=== PATIENT | male | born 1970 | race Caucasian/White ===

== ENCOUNTER 2017-07-19 17:52 | Emergency (ER) | payer BC ==
[2017-07-19 18:35] LABS: BASOPHILS # (AUTO) 0.1 10^3/uL (0.0-0.1); BASOPHILS % (AUTO) 0.8 %; EOSINOPHILS # (AUTO) 0.3 10^3/uL (0.0-0.7); EOSINOPHILS % (AUTO) 2.5 %; HCT - HEMATOCRIT 47.2 % (42.0-52.0); HGB - HEMOGLOBIN 16.2 g/dL (14.0-18.0); LYMPHOCYTES # (AUTO) 1.8 10^3/uL (1.5-3.5); LYMPHOCYTES % (AUTO) 15.8 %; MEAN CORPUSCULAR HGB CONC 34.4 g/dL (32.0-36.0); MEAN CORPUSCULAR VOLUME 84.2 fL (80.0-94.0); MEAN PLATELET VOLUME 7.7 fL (7.4-11.4); MONOCYTES # (AUTO) 0.7 10^3/uL (0.0-1.0); MONOCYTES % (AUTO) 6.5 %; NEUTROPHILS # (AUTO) 8.4 10^3/uL (1.5-6.6); NEUTROPHILS % (AUTO) 74.4 %; RED BLOOD COUNT 5.61 10^6/uL (4.70-6.10); RED CELL DISTRIBUTION WIDTH 13.4 % (12.0-15.0); UNCORRECTED WHITE BLOOD COUNT 11.4 x10^3/uL; WHITE BLOOD COUNT 11.4 x10^3/uL (4.8-10.8)
[2017-07-19 18:51] LABS: ALBUMIN/GLOBULIN RATIO 1.4 (1.0-2.2); BILIRUBIN,TOTAL 0.5 mg/dL (0.2-1.0); CALCIUM 9.6 mg/dL (8.5-10.3); CREATININE 1.5 mg/dL (0.6-1.2); POTASSIUM 4.2 mmol/L (3.5-5.0); TOTAL PROTEIN 7.5 g/dL (6.7-8.2)
--- NOTE | 2017-07-19 19:27 | ED Physician Documentation ---
PD HPI SYNCOPE - Stated complaint Stated Complaint: FAINTED/LIGHTHEADED - Chief complaint Chief Complaint: Cardiac - History obtained from History obtained from: Patient, Family - History of Present Illness Witnessed: Witnessed Timing - onset: Today Duration: Seconds Preceding symptoms: Light headed, Generalized weakness Associated symptoms: No: Seizure, Incontinant of urine, Incontinant of stool, Headache, Vision changes, Chest pain, Palpitations, Diaphoresis, Dyspnea, Nausea / vomiting, Abdominal pain Contributing factors: No: Recent med change, Decreased PO intake, Noxious stimulae, Emotional upset, Just stood up, Exertion Injury occurred: Fell, Head injury. No: Neck injury Pain level max: 3 Pain level now: 3 Similar symptoms before: Has not had sx before Recently seen: Not recently seen Review of Systems Ten Systems: 10 systems reviewed and negative Constitutional: denies: Fever, Chills Ears: denies: Ear pain Nose: denies: Rhinorrhea / runny nose, Congestion Throat: denies: Sore throat Cardiac: denies: Chest pain / pressure Respiratory: denies: Cough GI: denies: Abdominal Pain, Nausea, Vomiting, Diarrhea Skin: denies: Rash Musculoskeletal: denies: Neck pain, Back pain Neurologic: denies: Focal weakness, Numbness, Confused, Altered mental status, Headache, LOC PD PAST MEDICAL HISTORY - Past Medical History Cardiovascular: Hypertension, Arrhythmia Respiratory: None, Sleep apnea Neuro: None Endocrine/Autoimmune: None, Other GI: None : None HEENT: None Psych: None Musculoskeletal: None Derm: None - Past Surgical History Past Surgical History: Yes HEENT: Tonsil/Adenoidectomy - Present Medications Home Medications: Ambulatory Orders Medication Instructions Recorded Confirmed Aspirin [Aspir-Low] 81 mg PO DAILY 10/08/16 07/19/17 Candesartan Cilexetil [Atacand] 16 mg PO DAILY 10/08/16 07/19/17 Metoprolol Succinate 12.5 mg PO DAILY 10/08/16 07/19/17 Spironolactone 25 mg PO DAILY 10/08/16 07/19/17 - Allergies Allergies/Adverse Reactions: Allergies Allergy/AdvReac Type Severity Reaction Status Date / Time penicillin * [penicillin] Allergy Unknown Verified 07/19/17 18:04 - Social History Does the pt smoke?: No Smoking Status: Never smoker Does the pt drink ETOH?: Yes Does the pt have substance abuse?: No - Immunizations Immunizations are current?: Yes - POLST Patient has POLST: No PD ED PE NORMAL - Vitals Vital signs reviewed: Yes - General General: Alert and oriented X 3, No acute distress, Well developed/nourished - HEENT HEENT: PERRL, EOMI, Ears normal, Moist mucous membranes, Pharynx benign, Other ( TTP over the R zygoma, small hematoma to the forehead. no palpable skull fx) - Neck Neck: Supple, no meningeal sign, No bony TTP - Cardiac Cardiac: RRR, Strong equal pulses - Respiratory Respiratory: No respiratory distress, Clear bilaterally - Abdomen Abdomen: Soft, Non tender, Non distended - Back Back: No CVA TTP, No spinal TTP - Derm Derm: Warm and dry - Extremities Extremities: Other (abrasion to the L knee. no TTP. FROM. NVI.) - Neuro Neuro: Alert and oriented X 3 - Psych Psych: Normal mood, Normal affect Results - Vitals Vitals: Vital Signs - 24 hr 07/19/17 07/19/17 07/19/17 17:59 18:15 18:45 Temperature 36 C L Heart Rate 85 120 H 112 H Respiratory 16 15 18 Rate Blood Pressure 111/71 137/101 H 147/82 H O2 Saturation 97 99 99 07/19/17 07/19/17 19:00 20:00 Temperature Heart Rate 88 88 Respiratory 15 15 Rate Blood Pressure 133/72 H 137/72 H O2 Saturation 99 99 Oxygen O2 Source Room air - EKG (time done) 1809 Rate: Rate (enter#) (109) Rhythm: NSR, Atrial fibrillation (mix of afib and NSR) [place]: Normal QRS: Normal Ischemia: Non specific changes - Labs Labs: Laboratory Tests 07/19/17 07/19/17 07/19/17 18:25 18:25 18:25 WBC 11.4 H RBC 5.61 Hgb 16.2 Hct 47.2 MCV 84.2 MCH 29.0 MCHC 34.4 RDW 13.4 Plt Count 185 MPV 7.7 Neut # 8.4 H Lymph # 1.8 [place] # 0.7 Eos # 0.3 Baso # 0.1 Absolute Nucleated RBC 0.00 Nucleated RBCs 0.0 Sodium 138 Potassium 4.2 Chloride 101 Carbon Dioxide 25 Anion Gap 12.0 BUN 16 Creatinine 1.5 H Estimated GFR (MDRD) 51 L Glucose 121 H Calcium 9.6 Total Bilirubin 0.5 AST 25 ALT 23 Alkaline Phosphatase 51 Troponin I < 0.04 B-Natriuretic Peptide Total Protein 7.5 Albumin 4.4 Globulin 3.1 Albumin/Globulin Ratio 1.4 Lipase 65 H 07/19/17 18:25 WBC RBC Hgb Hct MCV MCH MCHC RDW Plt Count MPV Neut # Lymph # [place] # Eos # Baso # Absolute Nucleated RBC Nucleated RBCs Sodium Potassium Chloride Carbon Dioxide Anion Gap BUN Creatinine Estimated GFR (MDRD) Glucose Calcium Total Bilirubin AST ALT Alkaline Phosphatase Troponin I B-Natriuretic Peptide 20 Total Protein Albumin Globulin Albumin/Globulin Ratio Lipase PD MEDICAL DECISION MAKING - ED course Complexity details: reviewed results, re-evaluated patient, considered differential, d/w patient, d/w family ED course: Patient is a 47-year-old gentleman who presents to the emergency department after a syncopal event today. He did feel lightheaded prior to the event, denies any palpitations. He has a history of atrial fibrillation and is status post a cardiac ablation. Also has a history of congestive heart failure. He refuses any imaging including head CT, facial bone CT or chest x-ray. He does not want to stay in the hospital for further telemetry monitoring. I informed him and his that he has high risk for cardiac arrhythmia given his underlying structural heart disease as well as his atrial fibrillation. They both understand the risks of him leaving and have refused to stay at this point. They state they will call his security services specialist on Friday for follow-up. Patient signed AGAINST MEDICAL ADVICE. He is alert and oriented 3. No evidence of head injury that would affect his judgment making skills. No evidence of intoxication. Patient and were informed that they are welcome to return at any time should they change their mind. Head injury instructions were also given at bedside This document was made in part using voice recognition software. While efforts are made to proofread this document, sound alike and grammatical errors may occur. Departure - Departure Disposition: Against Medical Advice Clinical Impression: Atrial fibrillation Qualifiers: Atrial fibrillation type: paroxysmal Qualified Code(s): I48.0 - Paroxysmal atrial fibrillation Syncope Qualifiers: Syncope type: unspecified Qualified Code(s): R55 - Syncope and collapse Condition: Stable Instructions: ED Fainting Unkn Cause Follow-Up: Bernie Cazares MD [Primary Care Provider] - 07/21/17 Comments: You have signed out Against Medical Advice tonight. You are welcome to return at any time should you change your mind. As we discussed, you are at high risk for cardiac arrhythmias that could lead to sudden cardiac . Admission would provide us an opportunity to monitor you for any lethal arrhythmias and intervene before occurred. It would also allow a quicker and more complete evaluation of your syncope (passing out) than is possible in the outpatient setting. Discharge Date/Time: 07/19/17 20:10
[2017-07-19 20:17] VITALS: BP 137/72
== END 2017-07-19 20:10 | disposition left against medical advice (07) ==
LOC: ED 17:52
DX: I48.0 Paroxysmal atrial fibrillation (principal); R55 Syncope and collapse
CPT/HCPCS: 36415; 80053; 83690; 83880; 84484; 85025; 93005; 99284

== ENCOUNTER 2018-07-09 21:08 | Inpatient (IN) | payer BC ==
--- NOTE | 2018-07-09 21:43 | ED Physician Documentation ---
PD HPI GI BLEED - Stated complaint Stated Complaint: BLOOD VOMITING - Chief complaint Chief Complaint: Abd Pain - History obtained from History obtained from: Patient - History of Present Illness Timing - onset: Enter time (19:00), Today Timing - details: Abrupt onset Pain level now: 8 Associated symptoms: Vomiting, Hematemesis, Abdominal pain, Other (midline chest pain) Improved by: Other (no ameliorating factors) Worsened by: Other (no exacerbating factors) Similar symptoms before: Has not had sx before Recently seen: Not recently seen - Additional information Additional information: patient has been having sensation of food getting stuck in throat for the past 5 days. Tonight at approximately 7 PM, he tried to swallow a bite from a sub sandwich and again had sensation of the food getting caught in his throat. He took a large drink of iced tea and this seemed to move the food downwards, but he immediately had sensation of tearing pain in lower midline chest and upper abdomen, and then had hematemesis and thus came to ED. Review of Systems Constitutional: reports: Reviewed and negative Eyes: reports: Reviewed and negative Ears: reports: Reviewed and negative Nose: reports: Reviewed and negative Throat: reports: Reviewed and negative Cardiac: reports: Chest pain / pressure. denies: Palpitations Respiratory: denies: Dyspnea, Cough GI: reports: Abdominal Pain, Nausea, Vomiting, Hematemesis : reports: Reviewed and negative Skin: reports: Reviewed and negative Musculoskeletal: reports: Back pain (abdominal pain radiates to back). denies: Neck pain Neurologic: denies: Generalized weakness, Focal weakness, Numbness PD PAST MEDICAL HISTORY - Past Medical History Cardiovascular: Hypertension, Arrhythmia Respiratory: None, Sleep apnea Endocrine/Autoimmune: None, Other GI: None : None HEENT: None Psych: None Musculoskeletal: None Derm: None Other Past Medical History: h/o atrial fibrillation which resolved with ablation - Past Surgical History Past Surgical History: Yes HEENT: Tonsil/Adenoidectomy - Present Medications Home Medications: Ambulatory Orders Medication Instructions Recorded Confirmed Aspirin [Aspir-Low] 81 mg PO DAILY 10/08/16 07/10/18 Candesartan Cilexetil [Atacand] 16 mg PO DAILY 10/08/16 07/10/18 Metoprolol Succinate 25 mg PO Q12H 10/08/16 07/10/18 Spironolactone 25 mg PO DAILY 10/08/16 07/10/18 - Allergies Allergies/Adverse Reactions: Allergies Allergy/AdvReac Type Severity Reaction Status Date / Time penicillin * [penicillin] Allergy Unknown Verified 07/09/18 21:28 - Social History Does the pt smoke?: No Smoking Status: Never smoker Does the pt drink ETOH?: Yes Does the pt have substance abuse?: No - Immunizations Immunizations are current?: Yes - POLST Patient has POLST: No PD ED PE NORMAL - Vitals Vital signs reviewed: Yes - General General: Alert and oriented X 3, Well developed/nourished, Other (appears to be uncomfortable due to pain) - HEENT HEENT: Moist mucous membranes - Neck Neck: Other (no crepitus/[employer]) - Cardiac Cardiac: RRR, No murmur - Respiratory Respiratory: No respiratory distress, Clear bilaterally - Abdomen Abdomen: Soft, Non tender, Non distended - Derm Derm: Normal color, Warm and dry - Extremities Extremities: No edema Results - Vitals Vitals: Vital Signs - 24 hr 07/09/18 07/09/18 07/10/18 21:22 23:25 01:04 Temperature 36.8 C Heart Rate 79 96 94 Respiratory 18 18 18 Rate Blood Pressure 176/116 H 144/85 H 155/96 H O2 Saturation 96 98 98 07/10/18 01:49 Temperature 37.8 C H Heart Rate 94 Respiratory 20 Rate Blood Pressure 145/93 H O2 Saturation 96 Oxygen O2 Source Room air - Labs Labs: Laboratory Tests 07/09/18 07/09/18 07/09/18 21:35 21:40 21:40 WBC 11.8 H RBC 5.55 Hgb 16.2 Hct 45.9 MCV 82.7 MCH 29.2 MCHC 35.3 RDW 12.9 Plt Count 187 MPV 7.7 Neut # (Auto) 8.8 H Lymph # (Auto) 1.8 [place] # (Auto) 0.7 Eos # (Auto) 0.3 Baso # (Auto) 0.1 Absolute Nucleated RBC 0.00 Nucleated RBC % 0.0 PT 11.5 INR 1.0 APTT 30.6 Sodium Potassium Chloride Carbon Dioxide Anion Gap BUN Creatinine Estimated GFR (MDRD) Glucose Calcium Total Bilirubin AST ALT Alkaline Phosphatase Total Protein Albumin Globulin Albumin/Globulin Ratio Lipase Blood Type O POSITIVE Antibody Screen NEGATIVE 08/16/18 08/17/18 21:40 00:15 WBC RBC Hgb 15.3 Hct 44.1 MCV MCH MCHC RDW Plt Count MPV Neut # (Auto) Lymph # (Auto) [place] # (Auto) Eos # (Auto) Baso # (Auto) Absolute Nucleated RBC Nucleated RBC % PT INR APTT Sodium 138 Potassium 3.7 Chloride 101 Carbon Dioxide 29 Anion Gap 8.0 BUN 15 Creatinine 1.1 Estimated GFR (MDRD) 72 L Glucose 113 H Calcium 9.6 Total Bilirubin 0.7 AST 24 ALT 33 Alkaline Phosphatase 56 Total Protein 7.5 Albumin 4.4 Globulin 3.1 Albumin/Globulin Ratio 1.4 Lipase 37 Blood Type Antibody Screen - Rads (name of study) CT chest Radiology: Prelim report reviewed, See rad report, Other (IV and PO contrast) CT abd. Radiology: Prelim report reviewed, See rad report, Other (IV and PO contrast) PD MEDICAL DECISION MAKING - ED course Complexity details: reviewed results, re-evaluated patient, considered differential, d/w patient ED course: Given 4mg IV morphine which resulted in increased nausea and then vomiting ( hematemesis). Given IV zofran. His pain gradually improved and continued to improve, although not resolve, during remainder of ED stay. He had multiple episodes of hematemesis in ED, approximately 600-700 cc total of blood without clots. His nausea and vomiting, however, resolved during ED stay. Patient denies any regular and/or heavy alcohol use, recently or in the past. No known h/o PUD. D/W Dr. Bob Ansari, will evaluate patient in the morning, recommends hospitalist admission. D/W Dr. Villalpando, will admit to [facility]. - Sepsis Event Vital Signs: Vital Signs - 24 hr 07/09/18 07/09/18 07/10/18 21:22 23:25 01:04 Temperature 36.8 C Heart Rate 79 96 94 Respiratory 18 18 18 Rate Blood Pressure 176/116 H 144/85 H 155/96 H O2 Saturation 96 98 98 07/10/18 01:49 Temperature 37.8 C H Heart Rate 94 Respiratory 20 Rate Blood Pressure 145/93 H O2 Saturation 96 Oxygen O2 Source Room air Departure - Departure Disposition: [facility] DC/Xfer Clinical Impression: Upper GI bleeding Condition: Stable Discharge Date/Time: 07/10/18 02:21
[2018-07-09] MEDS ORDERED: MORPHINE 2 MG/ML SYRINGE IVP STA (22:12)
[2018-07-09] MEDS ORDERED: PANTOPRAZOLE 40 MG VIAL IV STA (22:18)
[2018-07-09 22:19] LABS: BASOPHILS # (AUTO) 0.1 10^3/uL (0.0-0.1); BASOPHILS % (AUTO) 0.6 %; EOSINOPHILS # (AUTO) 0.3 10^3/uL (0.0-0.7); EOSINOPHILS % (AUTO) 2.7 %; HGB - HEMOGLOBIN 16.2 g/dL (14.0-18.0); LYMPHOCYTES # (AUTO) 1.8 10^3/uL (1.5-3.5); LYMPHOCYTES % (AUTO) 15.3 %; MEAN CORPUSCULAR HEMOGLOBIN 29.2 pg (27.0-31.0); MEAN CORPUSCULAR HGB CONC 35.3 g/dL (32.0-36.0); MEAN CORPUSCULAR VOLUME 82.7 fL (80.0-94.0); MEAN PLATELET VOLUME 7.7 fL (7.4-11.4); MONOCYTES # (AUTO) 0.7 10^3/uL (0.0-1.0); MONOCYTES % (AUTO) 6.3 %; NEUTROPHILS # (AUTO) 8.8 10^3/uL (1.5-6.6); NEUTROPHILS % (AUTO) 75.1 %; PLT - PLATELET COUNT 187 10^3/uL (130-450); RED BLOOD COUNT 5.55 10^6/uL (4.70-6.10); RED CELL DISTRIBUTION WIDTH 12.9 % (12.0-15.0); WHITE BLOOD COUNT 11.8 x10^3/uL (4.8-10.8)
[2018-07-09 22:23] LABS: ALBUMIN 4.4 g/dL (3.2-5.5); ALBUMIN/GLOBULIN RATIO 1.4 (1.0-2.2); BILIRUBIN,TOTAL 0.7 mg/dL (0.2-1.0); CALCIUM 9.6 mg/dL (8.5-10.3); CREATININE 1.1 mg/dL (0.6-1.2); TOTAL PROTEIN 7.5 g/dL (6.7-8.2)
[2018-07-09] MEDS ORDERED: ONDANSETRON 4 MG/2 ML VIAL IVP STA (22:23)
[2018-07-09 22:26] LABS: PT - PROTHROMBIN TIME 11.5 secs (9.9-12.6)
[2018-07-09] MEDS ORDERED: IOPAMIDOL-300 100 ML VIAL ONE (22:43)
[2018-07-09] MEDS ORDERED: IOPAMIDOL-300 50 ML VIAL ONE (22:44)
[2018-07-09] MEDS ORDERED: IOPAMIDOL-300 50 ML VIAL PO ONE (23:56)
[2018-07-09] MEDS ORDERED: IOPAMIDOL-300 100 ML VIAL IVP ONE (23:56)
--- NOTE | 2018-07-10 00:23 | CT Report ---
Procedure Date: 07/10/2018 Accession Number: [id number] / [id number] Procedure: CT - Chest W/ CPT Code: FULL RESULT: EXAM: CT CHEST EXAM DATE: 07/10/2018 12:06 AM. CLINICAL HISTORY: Chest/abd. pain, hematemesis. COMPARISONS: None. TECHNIQUE: Routine helical CT imaging was performed through the chest. IV contrast: 100 mL Isovue 300. Reconstructions: Coronal and sagittal. In accordance with CT protocol optimization, one or more of the following dose reduction techniques were utilized for this exam: automated exposure control, adjustment of mA and/or KV based on patient size, or use of iterative reconstructive technique. FINDINGS: Lungs/Pleura: Minimal right middle lobe atelectasis. No focal infiltrate, effusion, or pneumothorax. Mediastinum: No cardiomegaly. The great vessels appear unremarkable. There is debris throughout the esophagus. No mediastinal adenopathy. Bones: Mild degenerative changes. Visualized Abdomen: Please see separate CT. Other: None. IMPRESSION: Debris throughout the esophagus. No evidence of adenopathy. Minimal right middle lobe atelectasis. RADIA
--- NOTE | 2018-07-10 00:25 | CT Report ---
Procedure Date: 07/09/2018 Accession Number: [id number] / [id number] Procedure: CT - Abdomen W/ CPT Code: FULL RESULT: EXAM: CT ABDOMEN EXAM DATE: 07/09/2018 11:58 PM. CLINICAL HISTORY: Chest/abd. pain, hematemesis. COMPARISON: None. TECHNIQUE: Routine helical CT imaging was performed through the abdomen. IV contrast: ISOVUE 300 100mL Enteric contrast: Yes Reconstruction: Coronal and sagittal. In accordance with CT protocol optimization, one or more of the following dose reduction techniques were utilized for this exam: automated exposure control, adjustment of mA and/or KV based on patient size, or use of iterative reconstructive technique. FINDINGS: Lung Bases: Please see separate chest CT. Liver: Normal. No masses. Gallbladder/Bile Ducts: Unremarkable. Spleen: Normal. Pancreas: Normal. Adrenal Glands: Normal. Kidneys: Normal. No masses or hydronephrosis. Peritoneal Cavity/Bowel: Normal. No free fluid, free air or adenopathy. No masses or acute inflammatory process. The appendix is well visualized and normal. Vasculature: No aneurysms or other significant abnormality. Bones: No significant abnormality. Other: None. IMPRESSION: Normal abdomen CT. RADIA
[2018-07-10 00:26] LABS: HGB - HEMOGLOBIN 15.3 g/dL (14.0-18.0)
--- NOTE | 2018-07-10 02:11 | HISTORY & PHYSICAL EXAMINATION ---
Chief Complaint - Chief Complaint Chief Complaint: Odynophagia History of Present Illness - Admitted From Admitted From:: Home - History Obtained From History obtained from: Patient, ED physician - History of Present Illness HPI Comment/Other: Mr. Rob Hurley is a very pleasant 48-year-old gentleman with a past medical history significant only for atrial fibrillation which was eventually corrected with ablation and hypertension. He has noticed he has been having increasing difficulty swallowing over the last 3 or 4 days but noted that if he took small bites and washed it down with a drink he was able to continue to eat. Last night however the patient was very hungry and took a very large bite of a submarine sandwich and felt the food bolus get stuck. He took a large dose sip of water and forced the food bolus down but when he did so felt a tearing in his chest. He said the pain was very painful, he could taste blood, and that the pain radiated to his back. He came to the emergency department where he vomited blood 3 times. In the emergency department patient was initially very hypertensive with blood pressure 176/116 but this came down rather quickly to 144/85. He was not hypoxic on room air and his respiratory rate was 18. He was given pain medicine and monitored and a CAT scan of the patient's chest and abdomen were performed.CT scan of the patient's chest and abdomen failed to show any significant bleeding in the patient's chest and with pain medicine the patient felt better however it was felt to be prudent to admit him to the hospital for serial hemoglobins and to monitor him overnight. Bob Ansari, general surgery , was consulted in the emergency department and will see the patient this morning and plan to do an upper endoscopy to assess the damage of the patient's esophagus. History - Past Medical History Cardiovascular: reports: Hypertension, Arrhythmia Respiratory: reports: None, Sleep apnea Endocrine/Autoimmune: reports: None, Other GI: reports: None : reports: None HEENT: reports: None Psych: reports: None Musculoskeletal: reports: None Derm: reports: None MRSA Hx?: No - Past Surgical History Cardiovascular: reports: Other (Ablation for atrial fibrillation) HEENT: reports: Tonsil/Adenoidectomy - Family & Social History Family History: Mother: Alive and Well, Father: Alive and Well, Cancer, Brother : Alive and Well, Other family: CVA/TIA, Diabetes, Type 2 (maternal side of family has diabetes) Family History Comment/Other: The patient's brother had septicemia secondary to a fishhook and developed endocarditis which necessitated an aortic valve replacement. Patient's brother also has seizure disorder which he also believes is related to the septicemia. Living arrangement: At home Living Situation: With family - Substance History Use: Uses substance without health or social issues: Tobacco, Alcohol Abuse: Recurrent use of substance despite neg consequences: NONE Dependence: Experiences withdrawal or developed tolerances: NONE Tobacco Details: Chewing Tobacco - POLST Patient has POLST: No POLST Status: Full Code Meds/Allgy - Home Medications Home Medications: Ambulatory Orders Medication Instructions Recorded Confirmed Aspirin [Aspir-Low] 81 mg PO DAILY 10/08/16 07/19/17 Candesartan Cilexetil [Atacand] 16 mg PO DAILY 10/08/16 07/19/17 Metoprolol Succinate 12.5 mg PO DAILY 10/08/16 07/19/17 Spironolactone 25 mg PO DAILY 10/08/16 07/19/17 - Allergies Allergies/Adverse Reactions: Allergies Allergy/AdvReac Type Severity Reaction Status Date / Time penicillin * [penicillin] Allergy Unknown Verified 07/09/18 21:28 Review of Systems - Constitutional Constitutional: denies: Fatigue, Fever, Chills, Malaise, Night sweats - Eyes Eyes: denies: Pain, Irritation, Amaurosis, Blurred vision, Dipolpia - Ears, Nose & Throat Ears, Nose & Throat: reports: Sore throat, Other (odynophagia, dysphagia). denies: Ear pain, Hearing loss, Hearing aids, Tinnitus, Vertigo, Nasal pain, Nasal discharge - Cardiovascular Cariovascular: denies: Irregular heart rate, Palpitations, Chest pain, Edema, Syncope, Exertional dyspnea - Respiratory Respiratory: denies: Cough, Sputum production, Wheezing, Snoring, Orthopnea, SOB at rest, SOB with exertion - Gastrointestinal Gastrointestinal: reports: Vomiting, Nicolás blood emesis, Other (dysphagia, odynophagia). denies: Abdominal pain, Abdominal distention, Constipation, Diarrhea, Rectal bleeding, Bloody stools, Bile emesis - Genitourinary Genitourinary: denies: Dysuria, Frequency, Urgency, Hematuria - Musculoskeletal Musculoskeletal: denies: Muscle pain, Back pain, Muscle aches, Stiffness, Muscle weakness, Joint pain - Integumentary Integumentary: denies: Rash, Pruritis, Lesions, Dryness - Neurological Neurological: denies: General weakness, Focal weakness, Headache, Dizziness - Psychiatric Psychiatric: denies: Depression, Anxiety, Suicidal, Hallucinations - Endocrine Endocrine: denies: Polyuria, Polydypsia, Polyphagia - Hematologic/Lymphatic Hematologic/Lymphatic: denies: Anemia, Bruising, Petechiae, Lymphadenopathy - All Other Systems All Other Systems: reports: Reviewed and negative Exam - Vital Signs Reviewed Vital Signs: Yes Vital Signs: Vital Signs x48h Temp Pulse Resp BP Pulse Ox 07/10/18 01:49 37.8 C H 94 20 145/93 H 96 07/10/18 01:04 94 18 155/96 H 98 07/09/18 23:25 96 18 144/85 H 98 07/09/18 21:22 36.8 C 79 18 176/116 H 96 - Physical Exam General Appearance: positive: Alert, Mild distress Eyes Bilateral: positive: Normal inspection, PERRL, EOMI, No lid inflammation, Conjunctivae nml, No scleral icterus ENT: positive: ENT inspection nml, Pharynx nml, No signs of dehydration. negative: Purulent nasal drainage, Pharyngeal erythema, Oral lesions Neck: positive: Nml inspection, Thyroid nml, No JVD, Trachea midline. negative : Thyromegaly, Swelling/bruising, Tracheal deviation Respiratory: positive: Chest non-tender, No respiratory distress, Breath sounds nml. negative: Wheezes, Rales, Rhonchi Cardiovascular: positive: Regular rate & rhythm, No murmur, No gallop Peripheral Pulses: positive: 1+ Abdomen: positive: Non-tender, No organomegaly, Nml bowel sounds, No distention. negative: Guarding, Rebound Back: positive: Nml inspection. negative: CVA tenderness (R), CVA tenderness (L ) Skin: positive: Color nml, No rash, Warm, Dry. negative: Cyanosis, Diaphoresis , Pallor Extremities: positive: Non-tender, Full ROM, Nml appearance, No pedal edema Neurologic/Psychiatric: positive: Oriented x3, CN's nml (2-12), Motor nml, Sensation nml, Mood/affect nml Conclusion/Plan - Problem List (1) Lower esophageal tear with hemorrhage Conclusion/Plan: Patient has been experiencing dysphagia for the last 3 or 4 days and has been having to take smaller bites which he then has had to wash down. It sounds as if he has had a partial obstruction or narrowing develop. Today he took a large volume bite and forced the bolus down causing a tear. He has vomited 3 times in the emergency department and has lost 0.9 units of blood by hemoglobin. We will admit him to medical surgical bed on telemetry, give him IV fluids, make him n.p.o. in anticipation of an upper endoscopy tomorrow, and address his other comorbidities. (2) Hypertension Conclusion/Plan: The patient has a history of hypertension and takes candesartan, metoprolol, and spironolactone at home. We will restart him on these medications while he is inpatient. We will hold the baby aspirin while he is inpatient. (3) Obstructive sleep apnea Conclusion/Plan: Patient has a history of obstructive sleep apnea and uses BiPAP at home. We will instruct him to bring in his home BiPAP unit. - Lab Results Lab results reviewed: Yes Fish Bones: 07/10/18 05:45 07/10/18 05:45 - Diagnostic Imaging Results Diagnostic Imaging Results: positive: Final report reviewed Diagnostic Imaging Results Comments: EXAM: CT CHEST EXAM DATE: 07/10/2018 12:06 AM. CLINICAL HISTORY: Chest/abd. pain, hematemesis. COMPARISONS: None. TECHNIQUE: Routine helical CT imaging was performed through the chest. IV contrast: 100 mL Isovue 300. Reconstructions: Coronal and sagittal. In accordance with CT protocol optimization, one or more of the following dose reduction techniques were utilized for this exam: automated exposure control, adjustment of mA and/or KV based on patient size, or use of iterative reconstructive technique. FINDINGS: Lungs/Pleura: Minimal right middle lobe atelectasis. No focal infiltrate, effusion, or pneumothorax. Mediastinum: No cardiomegaly. The great vessels appear unremarkable. There is debris throughout the esophagus. No mediastinal adenopathy. Bones: Mild degenerative changes. Visualized Abdomen: Please see separate CT. Other: None. IMPRESSION: Debris throughout the esophagus. No evidence of adenopathy. Minimal right middle lobe atelectasis. EXAM: CT ABDOMEN EXAM DATE: 07/09/2018 11:58 PM. CLINICAL HISTORY: Chest/abd. pain, hematemesis. COMPARISON: None. TECHNIQUE: Routine helical CT imaging was performed through the abdomen. IV contrast: ISOVUE 300 100mL Enteric contrast: Yes Reconstruction: Coronal and sagittal. In accordance with CT protocol optimization, one or more of the following dose reduction techniques were utilized for this exam: automated exposure control, adjustment of mA and/or KV based on patient size, or use of iterative reconstructive technique. FINDINGS: Lung Bases: Please see separate chest CT. Liver: Normal. No masses. Gallbladder/Bile Ducts: Unremarkable. Spleen: Normal. Pancreas: Normal. Adrenal Glands: Normal. Kidneys: Normal. No masses or hydronephrosis. Peritoneal Cavity/Bowel: Normal. No free fluid, free air or adenopathy. No masses or acute inflammatory process. The appendix is well visualized and normal. Vasculature: No aneurysms or other significant abnormality. Bones: No significant abnormality. Other: None. IMPRESSION: Normal abdomen CT.
[2018-07-10] MEDS ORDERED: MORPHINE 2 MG/ML SYRINGE IVP PRN (02:46)
[2018-07-10] MEDS ORDERED: ONDANSETRON 4 MG/2 ML VIAL IVP PRN (02:47)
[2018-07-10] MEDS: SODIUM CHLORIDE FLUSH 0.9% 10 ML SYRINGE IVP PRN (03:01)
[2018-07-10 05:53] LABS: BASOPHILS % (AUTO) 0.9 %; EOSINOPHILS % (AUTO) 0.1 %; HGB - HEMOGLOBIN 13.8 g/dL (14.0-18.0); LYMPHOCYTES % (AUTO) 4.8 %; MEAN CORPUSCULAR HEMOGLOBIN 29.3 pg (27.0-31.0); MEAN CORPUSCULAR HGB CONC 34.7 g/dL (32.0-36.0); MEAN CORPUSCULAR VOLUME 84.4 fL (80.0-94.0); MEAN PLATELET VOLUME 7.7 fL (7.4-11.4); MONOCYTES % (AUTO) 6.8 %; NEUTROPHILS % (AUTO) 87.4 %; PLT - PLATELET COUNT 193 10^3/uL (130-450); RED BLOOD COUNT 4.72 10^6/uL (4.70-6.10); RED CELL DISTRIBUTION WIDTH 13.3 % (12.0-15.0)
[2018-07-10 05:57] LABS: ABNORMAL LYMPHS % (MANUAL) 0 %
[2018-07-10 06:05] LABS: ALBUMIN 3.7 g/dL (3.2-5.5); ALBUMIN/GLOBULIN RATIO 1.4 (1.0-2.2); BILIRUBIN,TOTAL 1.1 mg/dL (0.2-1.0); CALCIUM 8.6 mg/dL (8.5-10.3); CREATININE 1.2 mg/dL (0.6-1.2); TOTAL PROTEIN 6.3 g/dL (6.7-8.2)
[2018-07-10 06:58] LABS: BAND NEUTROPHILS % (MANUAL) 3 %; DIFFERENTIAL COMMENT MANUAL DIFFERENTIAL; LYMPHOCYTES # (MANUAL) 2.2 10^3/uL (1.5-3.5); LYMPHOCYTES % (MANUAL) 10 %; MONOCYTES # (MANUAL) 1.3 10^3/uL (0.0-1.0); NEUTROPHILS # (MANUAL) 18.5 10^3/uL (1.5-6.6); NEUTROPHILS % (MANUAL) 81 %; PLATELET ESTIMATE, MANUAL NORMAL (130-450,000) (NORMAL); RBC MORPHOLOGY (MULTIPLE) NORMAL APPEARANCE (NORMAL)
[2018-07-10] MEDS: POLYETHYLENE GLYCOL 3350 17 GM PACKET PO SCH (07:31)
[2018-07-10] MEDS ORDERED: LACTATED RINGERS 1,000 ML IV ONE ×2 (07:53→10:05)
[2018-07-10] MEDS: PANTOPRAZOLE 40 MG VIAL IVP SCH ×2 (07:58→16:32)
[2018-07-10] MEDS: LACTATED RINGERS 1,000 ML IV SCH ×2 (07:58→15:48)
--- NOTE | 2018-07-10 08:06 | CONSULTATION NOTE ---
Referring Provider Name of Referring Provider:: Dr. Villalpando Consult Date: 07/10/18 Chief Complaint - Chief Complaint Chief Complaint: chest pain, hematemesis, dysphagia History of Present Illness - Admitted From Admitted From:: ER - History Obtained From Records Reviewed: yes History obtained from: pt Exam Limitations: none - History of Present Illness HPI Comment/Other: 48 yo male who noted the abrupt onset of dysphagia and sensation of food becoming lodged in his esophagus while eating a meat sub sandwich last night around 6-7 pm. He attempted to wash the food down with ice tea, which resulted in the food bolus seeming to pass but with associated severe odynophagia and chest pain, followed by several episodes of small volumes of hematemesis of bright red blood. This resulted in him presenting to the ER last night and subsequently to be admitted. He has had no further hematemesis since admission, and his chest pain has almost completely resolved. He c/o thirst at present and occasionally spits saliva into an emesis bag. He reports milder similar episodes of dysphagia for solid food, usually resolved with regurgitation, over the past several years. He is careful to wash his solid food down with liquids. He notes almost daily heartburn for the past 7-8 months, relieved with papaya tablets. No hx PUD or prior episodes of GI bleeding. Neg FH GI tumors; no recent wt loss. He has a 30 yr hx of chewing tobacco dependence, using 1 can/ day at present. He believes that the chewing tobacco is exacerbating his heartburn sx. No prior GI evaluations. No melena, BRBPR or change in bowel habits. Rare use of alcohol. History - Past Medical History Cardiovascular: reports: Hypertension, Arrhythmia (s/p ablation several years ago) Respiratory: reports: Sleep apnea (he uses CPAP at night) Endocrine/Autoimmune: reports: None GI: reports: GI bleed, Other (almost daily heartburn past year). denies: Hepatitis MRSA Hx?: No - Past Surgical History Cardiovascular: reports: Other (Ablation for atrial fibrillation) HEENT: reports: Tonsil/Adenoidectomy - Family & Social History Family History: Mother: Alive and Well, Father: Alive and Well, Cancer, Brother : Alive and Well, Other family: CVA/TIA, Diabetes, Type 2 (maternal side of family has diabetes) Family History Comment/Other: The patient's brother had septicemia secondary to a fishhook and developed endocarditis which necessitated an aortic valve replacement. Patient's brother also has seizure disorder which he also believes is related to the septicemia. Neg FH GI tumors Living arrangement: At home Living Situation: With family - Substance History Use: Uses substance without health or social issues: Tobacco (chews one can/day) , Alcohol (rare, exacerbates arrythmia) Abuse: Recurrent use of substance despite neg consequences: NONE Dependence: Experiences withdrawal or developed tolerances: NONE Tobacco Details: Chewing Tobacco - POLST Patient has POLST: No POLST Status: Full Code Meds/Allgy - Home Medications Home Medications: Ambulatory Orders Medication Instructions Recorded Confirmed Aspirin [Aspir-Low] 81 mg PO DAILY 10/08/16 07/19/17 Candesartan Cilexetil [Atacand] 16 mg PO DAILY 10/08/16 07/19/17 Metoprolol Succinate 12.5 mg PO DAILY 10/08/16 07/19/17 Spironolactone 25 mg PO DAILY 10/08/16 07/19/17 - Allergies Allergies/Adverse Reactions: Allergies Allergy/AdvReac Type Severity Reaction Status Date / Time penicillin * [penicillin] Allergy Unknown Verified 07/09/18 21:28 Review of Systems - Constitutional Constitutional: denies: Fatigue, Fever, Chills, Weakness, Poor appetite, Weight loss - Cardiovascular Cariovascular: reports: Chest pain. denies: Irregular heart rate, Palpitations , Edema, Syncope - Respiratory Respiratory: reports: Snoring. denies: Cough, Sputum production, Wheezing - Gastrointestinal Gastrointestinal: reports: Nicolás blood emesis, Reflux/heartburn. denies: Abdominal pain, Abdominal distention, Constipation, Diarrhea, Change in bowel habits, Rectal bleeding, Black stools, Bloody stools, Bile emesis - Genitourinary Genitourinary: denies: Dysuria - Hematologic/Lymphatic Hematologic/Lymphatic: denies: Blood clots, Bleeding tendencies - All Other Systems All Other Systems: reports: Reviewed and negative Exam - Vital Signs Reviewed Vital Signs: Yes Vital Signs: Vital Signs x48h Temp Pulse Resp BP Pulse Ox 07/10/18 05:29 37.2 C 109 H 20 140/93 H 95 07/10/18 02:44 37.4 C 94 18 147/83 H 96 - Physical Exam General Appearance: positive: No acute distress, Anxious Eyes Bilateral: positive: Normal inspection, Conjunctivae nml, No scleral icterus ENT: positive: ENT inspection nml, Pharynx nml, No signs of dehydration Neck: positive: Nml inspection, No JVD, Trachea midline, Other (large neck limits accuracy of evaluation). negative: Lymphadenopathy (R), Lymphadenopathy (L) Respiratory: positive: Chest non-tender, No respiratory distress, Breath sounds nml. negative: Wheezes, Rales, Rhonchi Cardiovascular: positive: Regular rate & rhythm, No murmur, No gallop Peripheral Pulses: positive: 2+ Abdomen: positive: Non-tender, No organomegaly, Nml bowel sounds, No distention. negative: Guarding, Rebound, Hepatomegaly, Splenomegaly, Mass Back: positive: Nml inspection Skin: positive: Color nml, No rash, Warm, Dry. negative: Cyanosis, Diaphoresis , Pallor Extremities: positive: Non-tender, Nml appearance, No pedal edema. negative: Calf tenderness Neurologic/Psychiatric: positive: Oriented x3 Conclusion/Plan - Diagnosis Diagnosis: 1.UGI bleed associated with dysphagia, odynophagia, chest pain, heartburn, chronic chewing tobacco use; ddx includes: Deisy Quan tear, EoE, Mckeon's esophagus, GERD with erosive esophagitis, other dysmotility, esophageal stricture, benign or malignant. Clinically improving at present and no evidence for esophageal perforation/Boerhaave's syndrome. 2. Heartburn with dysphagia; underlying GERD, EoE, doubt malignancy may be present. 3. Leukocytosis; ddx includes stress reaction/demargination, evolving sepsis from esophageal perforation or pneumonitis(doubt). - Plan Plan: NPO, IVF, continue PPI therapy, repeat CXR this am, and if no evidence of perforation or severe pneumonitis, proceed with EGD later today for further evaluation. PAR conf with pt. Will follow. - Lab Results Lab results reviewed: Yes Fish Bones: 07/10/18 05:45 07/10/18 05:45 - Diagnostic Imaging Results Diagnostic Imaging Results: positive: Final report reviewed, Read independently
[2018-07-10] MEDS: SODIUM CHLORIDE FLUSH 0.9% 10 ML SYRINGE IVP SCH ×3 (08:07→23:26)
[2018-07-10] MEDS: SPIRONOLACTONE 25 MG TABLET PO SCH (08:21)
--- NOTE | 2018-07-10 08:21 | XRAY Report ---
Procedure Date: 07/10/2018 Accession Number: [id number] / [id number] Procedure: XR - Chest 2 View X-Ray CPT Code: 80590 FULL RESULT: EXAM: CHEST RADIOGRAPHY EXAM DATE: 07/10/2018 08:14 AM. CLINICAL HISTORY: Chest pain, dysphagia, UGi bleeding. COMPARISON: 10/08/2016. TECHNIQUE: 2 views. FINDINGS: Lungs/Pleura: No focal opacities evident. No pleural effusion. No pneumothorax. Normal volumes. Mediastinum: Heart and mediastinal contours are unremarkable. Other: Mild degenerative changes of the thoracic spine. IMPRESSION: 1. No acute disease in the chest. RADIA
[2018-07-10] MEDS ORDERED: METOPROLOL SUCCINATE 25 MG TABLET PO SCH (09:00)
[2018-07-10] MEDS ORDERED: LOSARTAN 50 MG TABLET PO SCH (09:00)
--- NOTE | 2018-07-10 09:05 | ANESTHESIA ---
Pre-Anesthesia VS, & Labs - Diagnosis Diagnosis 1.UGI bleed associated with dysphagia, odynophagia, chest pain, heartburn, chronic chewing tobacco use; ddx includes: Deisy Quan tear, EoE, Mckeon's esophagus, GERD with erosive esophagitis, other dysmotility, esophageal stricture, benign or malignant. Clinically improving at present and no evidence for esophageal perforation/Boerhaave's syndrome . 2. Heartburn with dysphagia; underlying GERD, EoE, doubt malignancy may be present. 3. Leukocytosis; ddx includes stress reaction/ demargination, evolving sepsis from esophageal perforation or pneumonitis(doubt). - Procedure EGD Vital Signs: Temp Pulse Resp BP Pulse Ox 37.2 C 100 20 133/76 H 96 07/10/18 08:09 07/10/18 08:09 07/10/18 08:09 07/10/18 08:09 07/10/18 08:09 Height 6 ft 2 in Weight (kg) 133 kg Body Mass Index 37.6 - Lab Results Fish Bones: 07/10/18 05:45 07/10/18 05:45 Home Medications and Allergies Home Medications: Ambulatory Orders Medication Instructions Recorded Confirmed Aspirin [Aspir-Low] 81 mg PO DAILY 10/08/16 07/10/18 Candesartan Cilexetil [Atacand] 16 mg PO DAILY 10/08/16 07/10/18 Metoprolol Succinate 25 mg PO Q12H 10/08/16 07/10/18 Spironolactone 25 mg PO DAILY 10/08/16 07/10/18 Allergies/Adverse Reactions: Allergies Allergy/AdvReac Type Severity Reaction Status Date / Time penicillin * [penicillin] Allergy Unknown Verified 07/09/18 21:28 Anes History & Medical History - Anesthetic History Family history of Anesthesia Complications: Reports (he stops breathing with anesthesia) Family history of Malignant Hyperthermia: Denies - Medical History Cardiovascular: reports: Hypertension, Atrial fibrillation, Arrhythmia Pulmonary: reports: None, Sleep apnea Gastrointestinal: reports: None Urinary: reports: None Musculoskeletal: reports: None Endocrine/Autoimmune: reports: None, Other Blood Disorders: reports: None Skin: reports: None Smoking Status: Never smoker - Surgical History Eyes Ears Nose Throat (EENT): Tonsil/Adenoidectomy Cardiothoracic: Other (Ablation for atrial fibrillation) Exam General: Alert, Oriented x3, No acute distress Mouth Openin Fingerbreadth Mallampati classification: III Thyromental Distance: greater than 6 cm Respiratory: Lungs clear Cardiovascular: Regular rate Plan Anesthesia Type: MAC Consent for Procedure(s) Verified and Reviewed: Yes Code Status: Attempt Resuscitation ASA classification: 3-Severe systemic disease Is this case an emergency?: No
[2018-07-10] MEDS ORDERED: LIDO GARGLE 30 ML BOTTLE PO ONE (10:00)
[2018-07-10] MEDS ORDERED: LIDO GARGLE 30 ML BOTTLE ONE (10:05)
[2018-07-10] MEDS ORDERED: LIDOCAINE-MPF 2% 5 ML VIAL IM ONE (11:01)
[2018-07-10] MEDS ORDERED: PROPOFOL 200 MG/20 ML VIAL IVP ONE (11:01)
[2018-07-10] MEDS ORDERED: ePHEDrine 50 MG/ML AMP IVP ONE (11:16)
[2018-07-10 12:28] LABS: HGB - HEMOGLOBIN 11.7 g/dL (14.0-18.0); MEAN CORPUSCULAR HEMOGLOBIN 29.3 pg (27.0-31.0); MEAN CORPUSCULAR HGB CONC 34.4 g/dL (32.0-36.0); MEAN CORPUSCULAR VOLUME 85.3 fL (80.0-94.0); MEAN PLATELET VOLUME 7.9 fL (7.4-11.4); RED BLOOD COUNT 3.99 10^6/uL (4.70-6.10); RED CELL DISTRIBUTION WIDTH 13.4 % (12.0-15.0); WHITE BLOOD COUNT 19.1 x10^3/uL (4.8-10.8)
[2018-07-10] MEDS: CANDESARTAN 32 MG PO SCH (12:32)
--- NOTE | 2018-07-10 14:28 | PROVIDER PROGRESS NOTE ---
Subjective - Prog Note Date Prog Note Date: 07/10/18 - Subjective Pt reports feeling: Improved Subjective: pt report no abdominal pain, no N/V since he was admitted. No fever, chill, chest pain, SOB, dysuria. Current Medications - Current Medications Current Medications: Active Medications Lactated Ringer's (Lr) 1,000 mls @ 125 mls/hr IV .Q8H [facility] Last Infusion: 07/10/18 08:25 Dose: 125 mls/hr Metoprolol Succinate (Toprol Xl) 25 mg PO BID [facility] Morphine Sulfate (Morphine) 2 mg IVP Q2H PRN PRN Reason: PAIN Last Admin: 07/10/18 03:01 Dose: 2 mg Ondansetron HCl (Zofran Inj) 4 mg IVP Q4HR PRN PRN Reason: Nausea / Vomiting Last Admin: 07/10/18 03:01 Dose: 4 mg Pantoprazole Sodium (Protonix) 40 mg IVP BIDAC [facility] Last Admin: 07/10/18 07:58 Dose: 40 mg Candesartan 32 Mg (Tab) 0.5 each PO DAILY [facility] Last Admin: 07/10/18 12:32 Dose: Not Given Polyethylene Glycol (Miralax) 17 gm PO DAILY [facility] Last Admin: 07/10/18 07:31 Dose: Not Given Sodium Chloride (Normal Saline Flush 0.9%) 10 ml IVP PRN PRN PRN Reason: NEEDED PER PROVIDER ORDERS Last Admin: 07/10/18 03:01 Dose: 10 ml Sodium Chloride (Normal Saline Flush 0.9%) 10 ml IVP 0100,0900,1700 [facility] Last Admin: 07/10/18 08:07 Dose: 10 ml Spironolactone (Aldactone) 25 mg PO DAILY [facility] Last Admin: 07/10/18 08:21 Dose: 25 mg Aspirin [Aspir-Low] 81 mg PO DAILY 10/08/16 Candesartan Cilexetil [Atacand] 16 mg PO DAILY 10/08/16 Metoprolol Succinate 25 mg PO Q12H 10/08/16 Spironolactone 25 mg PO DAILY 10/08/16 Objective - Vital Signs/Intake & Output Reviewed Vital Signs: Yes Vital Signs: Vital Signs x48h Temp Pulse Resp BP BP Pulse Ox 07/10/18 13:29 37.2 C 89 20 117/58 L 99 08/17/18 12:30 37.2 C 87 18 129/59 L 98 07/10/18 12:01 37.2 C 90 18 109/59 L 96 07/10/18 11:42 36.5 C 18 122/50 L 98 07/10/18 11:39 22 109/36 L 96 07/10/18 11:38 18 110/46 L 95 07/10/18 11:36 19 92/52 L 98 07/10/18 11:35 27 H 117/53 L 95 07/10/18 11:30 36.4 C L 20 129/96 H 95 07/10/18 11:27 16 91/39 L 96 07/10/18 11:26 23 88/45 L 97 07/10/18 11:24 24 87/39 L 96 07/10/18 11:20 98 H 81/43 L 17 L 07/10/18 11:15 22 74/38 L 97 07/10/18 11:10 22 77/37 L 95 07/10/18 11:01 36.6 C 24 125/50 L 96 07/10/18 08:09 37.2 C 100 20 133/76 H 96 Intake & Output: Intake & Output 07/07/18 07/08/18 07/09/18 07/10/18 23:59 23:59 23:59 23:59 Intake Total 25 Output Total 280 Balance -255 - Objective General Appearance: positive: No acute distress, Alert. negative: Lethargic Eyes Bilateral: positive: Normal inspection, PERRL, No lid inflammation, Conjunctivae nml ENT: positive: ENT inspection nml, Pharynx nml, No signs of dehydration. negative: Purulent nasal drainage, Pharyngeal erythema, Oral lesions Neck: positive: Nml inspection, Thyroid nml, No JVD, Trachea midline. negative : Thyromegaly, Lymphadenopathy (R), Lymphadenopathy (L), Stiff neck, Swelling/ bruising, Tracheal deviation Respiratory: positive: Chest non-tender, No respiratory distress, Breath sounds nml. negative: Wheezes, Rales, Rhonchi Cardiovascular: positive: Regular rate & rhythm, No murmur, No gallop. negative : Irregularly irregular, Extrasystoles, Tachycardia, Bradycardia, JVD present, Systolic murmur, Diastolic murmur Peripheral Pulses: 2+ Radial (R), 2+ Radial (L), 2+ Dorsalis pedis (R), 2+ Dorsalis pedis (L) Abdomen: positive: Non-tender, No organomegaly, Nml bowel sounds, No distention. negative: Tenderness, Guarding, Rebound Back: positive: Nml inspection. negative: CVA tenderness (R), CVA tenderness (L ) Skin: positive: Color nml, No rash, Warm, Dry. negative: Cyanosis, Diaphoresis , Pallor Extremities: positive: Non-tender, Full ROM, Nml appearance. negative: Calf tenderness, Joint swelling, Baron's sign/cords Neurologic/Psychiatric: positive: Oriented x3, Motor nml, Sensation nml, Mood/ affect nml. negative: Weakness, Sensory loss, Facial droop, Slurred/abnml speech, Depressed mood/affect - Lab Results Fish Bones: 07/10/18 12:05 07/10/18 05:45 Other Labs: Lab Results x24hrs 07/10/18 07/10/18 07/10/18 Range/Units 12:05 05:45 05:45 WBC 19.1 H 22.0 H (4.8-10.8) x10^3/uL RBC 3.99 L 4.72 (4.70-6.10) 10^6/uL Hgb 11.7 L 13.8 L (14.0-18.0) g/dL Hct 34.0 L 39.8 L (42.0-52.0) % MCV 85.3 84.4 (80.0-94.0) fL MCH 29.3 29.3 (27.0-31.0) pg MCHC 34.4 34.7 (32.0-36.0) g/dL RDW 13.4 13.3 (12.0-15.0) % Plt Count 189 193 (130-450) 10^3/uL MPV 7.9 7.7 (7.4-11.4) fL Neut # (Auto) Not Reportable Lymph # (Auto) Not Reportable [place] # (Auto) Not Reportable Eos # (Auto) Not Reportable Baso # (Auto) Not Reportable Absolute Nucleated RBC Not Reportable Total Counted 100 Band Neuts % (Manual) 3 (0 - 10) % Abnorm Lymph % (Manual) 0 % Nucleated RBC % Not Reportable Neutrophils # (Manual) 18.5 H (1.5-6.6) 10^3/uL Lymphocytes # (Manual) 2.2 (1.5-3.5) 10^3/uL Monocytes # (Manual) 1.3 H (0.0-1.0) 10^3/uL Eosinophils # (Manual) 0.0 (0-0.7) 10^3/uL Basophils # (Manual) 0.0 (0-0.1) 10^3/uL Differential Comment MANUAL DIFFERENTIAL Platelet Estimate NORMAL (130-450,000) (NORMAL) RBC Morph Micro Appear NORMAL APPEARANCE (NORMAL) Sodium 135 (135-145) mmol/L Potassium 4.4 (3.5-5.0) mmol/L Chloride 102 (101-111) mmol/L Carbon Dioxide 27 (21-32) mmol/L Anion Gap 6.0 (6-13) BUN 24 H (6-20) mg/dL Creatinine 1.2 (0.6-1.2) mg/dL Estimated GFR (MDRD) 65 L (>89) Glucose 137 H (70-100) mg/dL Calcium 8.6 (8.5-10.3) mg/dL Total Bilirubin 1.1 H (0.2-1.0) mg/dL AST 20 (10-42) IU/L ALT 28 (10-60) IU/L Alkaline Phosphatase 38 L (42-121) IU/L Total Protein 6.3 L (6.7-8.2) g/dL Albumin 3.7 (3.2-5.5) g/dL Globulin 2.6 (2.1-4.2) g/dL Albumin/Globulin Ratio 1.4 (1.0-2.2) ABX Reporting Has patient been on IV antibiotics over the past 48 hours?: No Assessment/Plan - Problem List (1) Lower esophageal tear with hemorrhage Impression: Conclusion/Plan: 07/10 pt had EGD today morning. followup surgeon Discussed with result with pt. Pt had fresh blood clotting at lower third of the esophagus and distal esophagus. Linear tear is in distal esophagus extending from 33cm down to 38 cm just above the GE junction at 40 cm. random biopsies were performed. Discuss with pt, per state, if he continue to bleed, we may transfer to other hospital for surgery. we will continue monitor with H&H cross match done, would transfer blood as needed. HGB is 11.8 now continue Protonix start with clear diet, advanced as needed Patient has been experiencing dysphagia for the last 3 or 4 days and has been having to take smaller bites which he then has had to wash down. It sounds as if he has had a partial obstruction or narrowing develop. Today he took a large volume bite and forced the bolus down causing a tear. He has vomited 3 times in the emergency department and has lost 0.9 units of blood by hemoglobin. We will admit him to medical surgical bed on telemetry, give him IV fluids, make him n.p.o. in anticipation of an upper endoscopy tomorrow, and address his other comorbidities. (2) Hypertension Conclusion/Plan: stable, continue home meds The patient has a history of hypertension and takes candesartan, metoprolol, and spironolactone at home. We will restart him on these medications while he is inpatient. We will hold the baby aspirin while he is inpatient. (3) Obstructive sleep apnea Conclusion/Plan: continue use home CPAP Patient has a history of obstructive sleep apnea and uses BiPAP at home. We will instruct him to bring in his home BiPAP unit.
[2018-07-10 15:17] LABS: BILIRUBIN,URINE NEGATIVE (NEGATIVE); GLUCOSE, URINE (UA) NEGATIVE (NEGATIVE); KETONES,URINE (UA) NEGATIVE (NEGATIVE); LEUKOCYTE ESTERASE, URINE NEGATIVE (NEGATIVE); NITRITE,URINE NEGATIVE (NEGATIVE); OCCULT BLOOD,URINE NEGATIVE (NEGATIVE); PROTEIN,URINE NEGATIVE (NEGATIVE); UROBILINOGEN,URINE 0.2 (NORMAL) E.U./dL (NORMAL)
[2018-07-10 15:28] LABS: CLARITY,URINE CLEAR (CLEAR)
[2018-07-10 15:40] LABS: BACTERIA,URINE None Seen /HPF (None Seen); RBC,URINE None Seen /HPF (0-5); SQUAMOUS EPITHELIAL CELL,UR NONE SEEN (<= Few)
[2018-07-10] MEDS: METOPROLOL SUCCINATE 25 MG TABLET PO SCH ×2 (16:58→20:00)
[2018-07-10 18:06] LABS: BASOPHILS % (AUTO) 0.2 %; EOSINOPHILS % (AUTO) 0.1 %; HGB - HEMOGLOBIN 11.3 g/dL (14.0-18.0); LYMPHOCYTES # (AUTO) 1.2 10^3/uL (1.5-3.5); LYMPHOCYTES % (AUTO) 10.1 %; MEAN CORPUSCULAR HEMOGLOBIN 29.9 pg (27.0-31.0); MEAN CORPUSCULAR HGB CONC 34.9 g/dL (32.0-36.0); MEAN CORPUSCULAR VOLUME 85.5 fL (80.0-94.0); MONOCYTES % (AUTO) 8.6 %; NEUTROPHILS # (AUTO) 9.5 10^3/uL (1.5-6.6); PLT - PLATELET COUNT 157 10^3/uL (130-450); RED BLOOD COUNT 3.79 10^6/uL (4.70-6.10); RED CELL DISTRIBUTION WIDTH 13.4 % (12.0-15.0); WHITE BLOOD COUNT 11.7 x10^3/uL (4.8-10.8)
[2018-07-11] MEDS: LACTATED RINGERS 1,000 ML IV SCH ×2 (00:14→07:55)
[2018-07-11 05:53] LABS: BASOPHILS % (AUTO) 0.4 %; EOSINOPHILS # (AUTO) 0.1 10^3/uL (0.0-0.7); EOSINOPHILS % (AUTO) 1.3 %; HGB - HEMOGLOBIN 10.7 g/dL (14.0-18.0); LYMPHOCYTES # (AUTO) 1.5 10^3/uL (1.5-3.5); LYMPHOCYTES % (AUTO) 17.6 %; MEAN CORPUSCULAR HGB CONC 34.9 g/dL (32.0-36.0); MEAN PLATELET VOLUME 7.7 fL (7.4-11.4); MONOCYTES # (AUTO) 0.8 10^3/uL (0.0-1.0); MONOCYTES % (AUTO) 9.4 %; NEUTROPHILS # (AUTO) 6.1 10^3/uL (1.5-6.6); NEUTROPHILS % (AUTO) 71.3 %; PLT - PLATELET COUNT 146 10^3/uL (130-450); RED BLOOD COUNT 3.55 10^6/uL (4.70-6.10); RED CELL DISTRIBUTION WIDTH 13.4 % (12.0-15.0); WHITE BLOOD COUNT 8.6 x10^3/uL (4.8-10.8)
[2018-07-11 06:05] LABS: ALBUMIN 3.1 g/dL (3.2-5.5); ALBUMIN/GLOBULIN RATIO 1.3 (1.0-2.2); BILIRUBIN,TOTAL 0.8 mg/dL (0.2-1.0); CALCIUM 8.3 mg/dL (8.5-10.3); CREATININE 1.2 mg/dL (0.6-1.2); MAGNESIUM 1.7 mg/dL (1.7-2.8); TOTAL PROTEIN 5.4 g/dL (6.7-8.2)
[2018-07-11] MEDS: PANTOPRAZOLE 40 MG VIAL IVP SCH (06:25)
[2018-07-11] MEDS: SODIUM CHLORIDE FLUSH 0.9% 10 ML SYRINGE IVP PRN (06:25)
[2018-07-11] MEDS: SODIUM CHLORIDE FLUSH 0.9% 10 ML SYRINGE IVP SCH (06:25)
[2018-07-11 08:02] VITALS: BP 119/63
[2018-07-11 08:20] LABS: MEAN RETIC VALUE 108.3; RED BLOOD COUNT 3.51 10^6/uL (4.70-6.10)
[2018-07-11] MEDS: METOPROLOL SUCCINATE 25 MG TABLET PO SCH (08:31)
[2018-07-11] MEDS: SPIRONOLACTONE 25 MG TABLET PO SCH (08:31)
[2018-07-11] MEDS: CANDESARTAN 32 MG PO SCH (08:32)
[2018-07-11 08:36] LABS: % IRON SATURATION 11 % (20-50); IRON 29 ug/dL (45-182); TOTAL IRON BINDING CAPACITY 269 ug/dL (250-450); TRANSFERRIN 192 mg/dL (180-329)
[2018-07-11] MEDS: POLYETHYLENE GLYCOL 3350 17 GM PACKET PO SCH (08:36)
[2018-07-11 08:46] LABS: FERRITIN 169.7 ng/mL (23.9-336.2)
--- NOTE | 2018-07-11 09:40 | PROVIDER PROGRESS NOTE ---
Assessment/Plan - Problem List (1) Lower esophageal tear with hemorrhage Assessment/Plan: Clinically resolving with no signs of active bleeding at present. Decreased H/H likely due to equilibration from recent blood loss/hydration. No clinical evidence of perforation. Etiology is still unclear, biopsies for EoE pending. Rec: OK for d/c home on full liquid diet x 48 hours, then mechanical soft diet; high dose PPI therapy (40 mg BID omeprazole or equiv) and f/u in my office in 1 week. (2) GERD (gastroesophageal reflux disease) Qualifiers: Esophagitis presence: without esophagitis Qualified Code(s): K21.9 - Gastro -esophageal reflux disease without esophagitis Assessment/Plan: clinically improving with PPI therapy; rec: continue same pending biopsies and response to therapy. Minimize alcohol/tobacco/caffeine. - Current Meds Current Meds: Current Medications Generic Name Dose Route Start Last Admin Trade Name Freq PRN Reason Stop Dose Admin Metoprolol Succinate 25 mg 07/10/18 18:00 07/11/18 08:31 Toprol Xl PO Not Given BID [facility] Morphine Sulfate 2 mg 07/10/18 02:46 07/10/18 03:01 Morphine IVP 2 mg Q2H PRN Administration PAIN Ondansetron HCl 4 mg 07/10/18 02:47 07/10/18 03:01 Zofran Inj IVP 4 mg Q4HR PRN Administration Nausea / Vomiting Pantoprazole Sodium 40 mg 07/10/18 07:00 07/11/18 06:25 Protonix IVP 40 mg BIDAC [facility] Administration Candesartan 32 Mg 0.5 each 07/10/18 09:00 07/11/18 08:32 Tab PO 0.5 each DAILY [facility] Administration Polyethylene Glycol 17 gm 07/10/18 09:00 07/11/18 08:36 Miralax PO Not Given DAILY [facility] Sodium Chloride 10 ml 07/10/18 02:02 07/11/18 06:25 Normal Saline Flush 0.9% IVP 10 ml PRN PRN Administration NEEDED PER PROVIDER ORDERS Sodium Chloride 10 ml 07/10/18 09:00 07/11/18 06:25 Normal Saline Flush 0.9% IVP 10 ml 0100,0900,1700 [facility] Administration Spironolactone 25 mg 07/10/18 09:00 07/11/18 08:31 Aldactone PO 25 mg DAILY [facility] Administration - Lab Result Fish Bone Diagrams: 07/11/18 05:11 07/11/18 05:11 - Diagnostic Imaging Results Diagnostic Imaging Results: Final report reviewed, Read independently Diagnostic Imaging Results Comments: CXR shows no evidence of perforation. - Additional Planning Condition/Complexity: Improved My Orders: My Active Orders 07/11/18 Lunch Full Liquid Diet [DIET] Plan Discussed with:: Patient Time Spent: 15-30 minutes Subjective - Subjective Patient Reports: Feeling Better, Resting Comfortably, Heartburn (mild) Objective Vital Signs: Vital Signs - 24 hr 07/10/18 07/10/18 07/10/18 11:01 11:10 11:15 Temperature 36.6 C Heart Rate [ Brachial] Respiratory 24 22 22 Rate Blood Pressure 125/50 L 77/37 L 74/38 L Blood Pressure [Right Brachial artery] O2 Saturation 96 95 97 07/10/18 07/10/18 07/10/18 11:20 11:24 11:26 Temperature Heart Rate [ Brachial] Respiratory 98 H 24 23 Rate Blood Pressure 81/43 L 87/39 L 88/45 L Blood Pressure [Right Brachial artery] O2 Saturation 17 L 96 97 07/10/18 07/10/18 07/10/18 11:27 11:30 11:35 Temperature 36.4 C L Heart Rate [ Brachial] Respiratory 16 20 27 H Rate Blood Pressure 91/39 L 129/96 H 117/53 L Blood Pressure [Right Brachial artery] O2 Saturation 96 95 95 07/10/18 07/10/18 07/10/18 11:36 11:38 11:39 Temperature Heart Rate [ Brachial] Respiratory 19 18 22 Rate Blood Pressure 92/52 L 110/46 L 109/36 L Blood Pressure [Right Brachial artery] O2 Saturation 98 95 96 07/10/18 07/10/18 07/10/18 11:42 12:01 12:30 Temperature 36.5 C 37.2 C 37.2 C Heart Rate [ 90 87 Brachial] Respiratory 18 18 18 Rate Blood Pressure 122/50 L Blood Pressure 109/59 L 129/59 L [Right Brachial artery] O2 Saturation 98 96 98 07/10/18 07/10/18 07/10/18 13:29 14:31 15:34 Temperature 37.2 C 37.1 C 37.6 C H Heart Rate [ 89 85 94 Brachial] Respiratory 20 20 20 Rate Blood Pressure Blood Pressure 117/58 L 129/59 L 124/64 [Right Brachial artery] O2 Saturation 99 99 99 07/10/18 07/10/18 07/11/18 18:31 20:38 00:24 Temperature 37.0 C 37.2 C 36.8 C Heart Rate [ 87 77 78 Brachial] Respiratory 20 20 16 Rate Blood Pressure Blood Pressure 136/68 H 135/64 H 121/63 [Right Brachial artery] O2 Saturation 99 100 97 07/11/18 07/11/18 06:30 08:01 Temperature 36.6 C 36.7 C Heart Rate [ 64 62 Brachial] Respiratory 16 18 Rate Blood Pressure Blood Pressure 135/72 H 119/63 [Right Brachial artery] O2 Saturation 100 99 Oxygen O2 Source Room air I&O (Last 24 Hrs): Intake and Output Totals x24h 07/09/18 07/10/18 07/11/18 23:59 23:59 23:59 Intake Total 2547.917 1600 Output Total 1530 600 Balance 5025.971 5559 General: Alert, Oriented x3, Cooperative, No acute distress Neuro: Alert Cardiovascular: Regular rate, Normal S1, Normal S2, No murmurs, Gallops, Rubs Respiratory: Chest non-tender, No respiratory distress, Breath sounds nml Abdomen: Soft, No tenderness, No hepatospenomegaly, No masses - Results Results: Laboratory Results WBC 8.6 x10^3/uL (4.8-10.8) 07/11/18 05:11 RBC 3.51 10^6/uL (4.70-6.10) L 07/11/18 05:11 Hgb 10.7 g/dL (14.0-18.0) L 07/11/18 05:11 Hct 30.5 % (42.0-52.0) L 07/11/18 05:11 MCV 86.0 fL (80.0-94.0) 07/11/18 05:11 MCH 30.0 pg (27.0-31.0) 07/11/18 05:11 MCHC 34.9 g/dL (32.0-36.0) 07/11/18 05:11 RDW 13.4 % (12.0-15.0) 07/11/18 05:11 Plt Count 146 10^3/uL (130-450) 07/11/18 05:11 MPV 7.7 fL (7.4-11.4) 07/11/18 05:11 Reticulocyte % (Auto) 2.54 % (0.5-2.3) H 07/11/18 05:11 Neut # (Auto) 6.1 10^3/uL (1.5-6.6) 07/11/18 05:11 Lymph # (Auto) 1.5 10^3/uL (1.5-3.5) 07/11/18 05:11 [place] # (Auto) 0.8 10^3/uL (0.0-1.0) 07/11/18 05:11 Eos # (Auto) 0.1 10^3/uL (0.0-0.7) 07/11/18 05:11 Baso # (Auto) 0.0 10^3/uL (0.0-0.1) 07/11/18 05:11 Absolute Nucleated RBC 0.00 x10^3/uL 07/11/18 05:11 Total Counted 100 07/10/18 05:45 Band Neuts % (Manual) 3 % (0-10) 07/10/18 05:45 Abnorm Lymph % (Manual) 0 % 07/10/18 05:45 Nucleated RBC % 0.0 /100WBC 07/11/18 05:11 Neutrophils # (Manual) 18.5 10^3/uL (1.5-6.6) H 07/10/18 05:45 Lymphocytes # (Manual) 2.2 10^3/uL (1.5-3.5) 07/10/18 05:45 Monocytes # (Manual) 1.3 10^3/uL (0.0-1.0) H 07/10/18 05:45 Eosinophils # (Manual) 0.0 10^3/uL (0-0.7) 07/10/18 05:45 Basophils # (Manual) 0.0 10^3/uL (0-0.1) 07/10/18 05:45 Differential Comment MANUAL DIFFERENTIAL 07/10/18 05:45 Platelet Estimate NORMAL (130-450,000) (NORMAL) 07/10/18 05:45 RBC Morph Micro Appear NORMAL APPEARANCE (NORMAL) 07/10/18 05:45 Absolute Retic 0.089 10^6/uL (0.020-0.110) 07/11/18 05:11 PT 11.5 secs (9.9-12.6) 07/09/18 21:40 INR 1.0 (0.8-1.2) 07/09/18 21:40 APTT 30.6 secs (24.9-33.3) 07/09/18 21:40 Sodium 142 mmol/L (135-145) 07/11/18 05:11 Potassium 3.6 mmol/L (3.5-5.0) 07/11/18 05:11 Chloride 106 mmol/L (101-111) 07/11/18 05:11 Carbon Dioxide 30 mmol/L (21-32) 07/11/18 05:11 Anion Gap 6.0 (6-13) 07/11/18 05:11 BUN 29 mg/dL (6-20) H 07/11/18 05:11 Creatinine 1.2 mg/dL (0.6-1.2) 07/11/18 05:11 Estimated GFR (MDRD) 65 (>89) L 07/11/18 05:11 Glucose 107 mg/dL (70-100) H 07/11/18 05:11 Calcium 8.3 mg/dL (8.5-10.3) L 07/11/18 05:11 Magnesium 1.7 mg/dL (1.7-2.8) 07/11/18 05:11 Iron 29 ug/dL (45-182) L 07/11/18 05:11 TIBC 269 ug/dL (250-450) 07/11/18 05:11 % Saturation 11 % (20-50) L 07/11/18 05:11 Transferrin 192 mg/dL (180-329) 07/11/18 05:11 Ferritin 169.7 ng/mL (23.9-336.2) 07/11/18 05:11 Total Bilirubin 0.8 mg/dL (0.2-1.0) 07/11/18 05:11 AST 14 IU/L (10-42) 07/11/18 05:11 ALT 19 IU/L (10-60) 07/11/18 05:11 Alkaline Phosphatase 35 IU/L (42-121) L 07/11/18 05:11 Lactate Dehydrogenase 88 IU/L (91-225) L 07/11/18 08:25 Total Protein 5.4 g/dL (6.7-8.2) L 07/11/18 05:11 Albumin 3.1 g/dL (3.2-5.5) L 07/11/18 05:11 Globulin 2.3 g/dL (2.1-4.2) 07/11/18 05:11 Albumin/Globulin Ratio 1.3 (1.0-2.2) 07/11/18 05:11 Lipase 37 U/L (22-51) 07/09/18 21:40 Vitamin B12 1212 pg/mL (180-914) H 07/11/18 05:11 Urine Color YELLOW 07/10/18 14:30 Urine Clarity CLEAR (CLEAR) 07/10/18 14:30 Urine pH 6.0 PH (5.0-7.5) 07/10/18 14:30 Ur Specific [place] 1.015 (1.002-1.030) 07/10/18 14:30 Urine Protein NEGATIVE mg/dL (NEGATIVE) 07/10/18 14:30 Urine Glucose (UA) NEGATIVE mg/dL (NEGATIVE) 07/10/18 14:30 Urine Ketones NEGATIVE mg/dL (NEGATIVE) 07/10/18 14:30 Urine Occult Blood NEGATIVE (NEGATIVE) 07/10/18 14:30 Urine Nitrite NEGATIVE (NEGATIVE) 07/10/18 14:30 Urine Bilirubin NEGATIVE (NEGATIVE) 07/10/18 14:30 Urine Urobilinogen 0.2 (NORMAL) E.U./dL (NORMAL) 07/10/18 14:30 Ur Leukocyte Esterase NEGATIVE (NEGATIVE) 07/10/18 14:30 Urine RBC None Seen /HPF (0-5) 07/10/18 14:30 Urine WBC 0-3 /HPF (0-3) 07/10/18 14:30 Ur Squamous Epith Cells NONE SEEN (<= Few) 07/10/18 14:30 Urine Bacteria None Seen /HPF (None Seen) 07/10/18 14:30 Urine Culture Comments NOT INDICATED 07/10/18 14:30 Blood Type O POSITIVE 07/09/18 21:35 Antibody Screen NEGATIVE 07/09/18 21:35 - Procedures Procedures: EGD yesterday showed 7 cm linear longitudinal laceration/tear of distal esophagus above the GE junction with active bleeding and clots. ABX Reporting Has patient been on IV antibiotics over the past 48 hours?: No
--- NOTE | 2018-07-11 10:49 | Discharge Plan ---
Discharge Plan Disposition: 01 Home, Self Care Condition: Poor Prescriptions: Omeprazole 40 mg PO BID #20 capsule. Activity Restrictions: Activity as Tolerated Shower Restrictions: No (fall precaution) Instruction Topics: Omeprazole capsules sprinkle caps - Rx, Varenicline oral tablets Additional Instructions or Follow Up instructions: You may follow up your PCP in one week. you may have full liquid diet for 48 hours, then mechanical soft diet; may have 40 mg BID omeprazole, and follow up Dr. Bob Ansari office in 1 week. Should your symptoms return or worsen, you may present ER or call 911 for help. No Smoking: If you smoke, Please STOP! Call for help. Follow-up with: Bernie Cazares MD [Primary Care Provider] -
--- NOTE | 2018-07-11 11:05 | DISCHARGE SUMMARY ---
"Discharge Summary Discharge Date: 07/11/18 Discharging Provider: LEE Primary Care Provider: Dr. Cazares Condition at Discharge: Poor Discharge Disposition: 01 Home, Self Care Discharge Facility Name: home - DIAGNOSES Admission Diagnoses: (1) Lower esophageal tear with hemorrhage (2) Hypertension (3) Obstructive sleep apnea Discharge Diagnoses with Status of Each Condition: 1) Lower esophageal tear with hemorrhage EGD yesterday showed 7 cm linear longitudinal laceration/tear of distal esophagus above the GE junction with active bleeding and clots. after EGD, pt did not have GI bleed, no N/V, pt tolerate food. Per surgeon, pt can be d/c. advise pt may have full liquid diet for 48 hours, then mechanical soft diet; may have 40 mg BID omeprazole, and follow up Dr. Bob Ansari office in 1 week. (2) Hypertension stable (3) Obstructive sleep apnea stable (4) current smoker pt state he will quit cigarette smoking, and request Chantix, prescribe to him, and support his idea. - HPI History of Present Illness: refer from Dr. Villalpando's HPI as the following: Mr. Rob Hurley is a very pleasant 48-year-old gentleman with a past medical history significant only for atrial fibrillation which was eventually corrected with ablation and hypertension. He has noticed he has been having increasing difficulty swallowing over the last 3 or 4 days but noted that if he took small bites and washed it down with a drink he was able to continue to eat. Last night however the patient was very hungry and took a very large bite of a submarine sandwich and felt the food bolus get stuck. He took a large dose sip of water and forced the food bolus down but when he did so felt a tearing in his chest. He said the pain was very painful, he could taste blood, and that the pain radiated to his back. He came to the emergency department where he vomited blood 3 times. In the emergency department patient was initially very hypertensive with blood pressure 176/116 but this came down rather quickly to 144/85. He was not hypoxic on room air and his respiratory rate was 18. He was given pain medicine and monitored and a CAT scan of the patient's chest and abdomen were performed.CT scan of the patient's chest and abdomen failed to show any significant bleeding in the patient's chest and with pain medicine the patient felt better however it was felt to be prudent to admit him to the hospital for serial hemoglobins and to monitor him overnight. Bob Ansari, general surgery , was consulted in the emergency department and will see the patient this morning and plan to do an upper endoscopy to assess the damage of the patient's esophagus. - CONSULTS | PROCEDURES Consultations: Dr. Bob Ansari Procedures: EGD - ALLERGIES Allergies/Adverse Reactions: Allergies Allergy/AdvReac Type Severity Reaction Status Date / Time penicillin * [penicillin] Allergy Unknown Verified 07/09/18 21:28 - MEDICATIONS Home Medications: Ambulatory Orders Medication Instructions Recorded Confirmed Candesartan Cilexetil [Atacand] 16 mg PO DAILY 10/08/16 07/10/18 Metoprolol Succinate 25 mg PO Q12H 10/08/16 07/10/18 Spironolactone 25 mg PO DAILY 10/08/16 07/10/18 Omeprazole 40 mg PO BID #20 capsule. 07/11/18 Varenicline Tartrate [Chantix] 0.5 mg PO DAILY #15 tablet 07/11/18 - PHYSICAL EXAM AT DISCHARGE General Appearance: positive: No acute distress, Alert. negative: Lethargic Eyes Bilateral: positive: Normal inspection, PERRL, No lid inflammation, Conjunctivae nml ENT: positive: ENT inspection nml, Pharynx nml, No signs of dehydration. negative: Purulent nasal drainage, Pharyngeal erythema, Oral lesions Neck: positive: Nml inspection, Thyroid nml, No JVD, Trachea midline. negative : Thyromegaly, Lymphadenopathy (R), Lymphadenopathy (L), Stiff neck, Swelling/ bruising, Tracheal deviation Respiratory: positive: Chest non-tender, No respiratory distress, Breath sounds nml. negative: Wheezes, Rales, Rhonchi Cardiovascular: positive: Regular rate & rhythm, No murmur, No gallop. negative : Irregularly irregular, Extrasystoles, Tachycardia, Bradycardia, JVD present, Systolic murmur, Diastolic murmur Peripheral Pulses: positive: 2+ Abdomen: positive: Non-tender, No distention. negative: Tenderness, Guarding, Rebound Back: positive: Nml inspection. negative: CVA tenderness (R), CVA tenderness (L ) Skin: positive: Color nml, No rash, Warm, Dry. negative: Cyanosis, Diaphoresis , Pallor Extremities: positive: Non-tender, Full ROM, Nml appearance. negative: Calf tenderness, Joint swelling, Baron's sign/cords Neurologic/Psychiatric: positive: Oriented x3, Motor nml, Sensation nml, Mood/ affect nml. negative: Weakness, Sensory loss, Facial droop, Slurred/abnml speech, Depressed mood/affect - LABS Result Diagrams: 07/11/18 05:11 07/11/18 05:11 - FOLLOW UP Follow Up: You may follow up your PCP in one week. you may have full liquid diet for 48 hours, then mechanical soft diet; may have 40 mg BID omeprazole, and follow up Dr. Bob Ansari office in 1 week. Should your symptoms return or worsen, you may present ER or call 911 for help. - TIME SPENT Time Spent in Discharge (Minutes): 45"
== END 2018-07-11 11:22 | disposition home or self-care (01) | DRG 377 ==
LOC: ED 21:08 → MS2 07-10 02:02
PROVIDERS: ADMIT Hospitalist; ATTEND Nurse Practitioner Gerontology
PROC: 0DB58ZX Excision of Esophagus, Via Natural or Artificial Opening Endoscopic, Diagnostic (ICD-10-PCS; principal; 2018-07-10 09:30)
DX: K92.0 Hematemesis (principal); K22.3 Perforation of esophagus; I10 Essential (primary) hypertension; K22.8 Other specified diseases of esophagus; G47.33 Obstructive sleep apnea (adult) (pediatric); Z72.0 Tobacco use
CPT/HCPCS: 36415; 71046; 71260; 74160; 80053; 81001; 82270; 82607; 82728; 83540; 83615; 83690; 83735; 84466; 85014; 85018; 85025; 85027; 85044; 85610; 85730; 86850; 86900; 86901; 87086; 93005; 96374; 96375; 99283; 99284

== ENCOUNTER 2019-01-29 07:33 | Outpatient (CLI) | payer BC ==
[2019-01-29 07:50] LABS: BASOPHILS # (AUTO) 0.1 10^3/uL (0.0-0.1); EOSINOPHILS # (AUTO) 0.3 10^3/uL (0.0-0.7); EOSINOPHILS % (AUTO) 3.8 %; HGB - HEMOGLOBIN 15.4 g/dL (14.0-18.0); LYMPHOCYTES # (AUTO) 1.4 10^3/uL (1.5-3.5); LYMPHOCYTES % (AUTO) 16.2 %; MEAN CORPUSCULAR HEMOGLOBIN 29.1 pg (27.0-31.0); MEAN CORPUSCULAR HGB CONC 34.7 g/dL (32.0-36.0); MEAN CORPUSCULAR VOLUME 83.8 fL (80.0-94.0); MONOCYTES # (AUTO) 0.7 10^3/uL (0.0-1.0); MONOCYTES % (AUTO) 7.6 %; NEUTROPHILS # (AUTO) 6.1 10^3/uL (1.5-6.6); NEUTROPHILS % (AUTO) 71.4 %; PLT - PLATELET COUNT 158 10^3/uL (130-450); RED BLOOD COUNT 5.31 10^6/uL (4.70-6.10); RED CELL DISTRIBUTION WIDTH 13.6 % (12.0-15.0); WHITE BLOOD COUNT 8.5 x10^3/uL (4.8-10.8)
[2019-01-29 08:10] LABS: ALBUMIN/GLOBULIN RATIO 1.4 (1.0-2.2); ALKALINE PHOSPHATASE 55 IU/L (42-121); ALT ALANINE AMINOTRANSFERASE 42 IU/L (10-60); AST ASPARTATE AMINOTRANSFERASE 32 IU/L (10-42); BILIRUBIN,TOTAL 0.9 mg/dL (0.2-1.0); BUN - BLOOD UREA NITROGEN 16 mg/dL (6-20); CALCIUM 8.5 mg/dL (8.5-10.3); CARBON DIOXIDE - CO2 26 mmol/L (21-32); CHLORIDE 102 mmol/L (101-111); CHOLESTEROL 170 mg/dL; GFR - MDRD 80 (>89); GLUCOSE 123 mg/dL (70-100); HDL CHOLESTEROL 34 mg/dL; LDL CHOLESTEROL,CALCULATED 82 mg/dL; LDL/HDL RATIO 2.4 (<3.6); SODIUM 137 mmol/L (135-145); TOTAL PROTEIN 6.8 g/dL (6.7-8.2); VLDL CHOLESTEROL 54 mg/dL
== END 2019-01-29 07:34 | disposition home or self-care (01) ==
LOC: LAB 07:33
PROVIDERS: ATTEND Family Medicine
DX: Z00.00 Encounter for general adult medical examination without abnormal findings (principal)
CPT/HCPCS: 36415; 80053; 80061; 83721; 84443; 85025

== ENCOUNTER 2020-11-02 19:37 | Outpatient (CLI) | payer BC | END 2020-11-02 19:38 | disposition home or self-care (01) | LOC: COV 19:37 | PROVIDERS: ATTEND Family Medicine | DX: Z20.828 Contact with and (suspected) exposure to other viral communicable diseases (principal) ==

== ENCOUNTER 2020-11-09 17:15 | Outpatient (CLI) | payer BC | END 2020-11-09 17:16 | disposition home or self-care (01) | LOC: COV 17:15 | PROVIDERS: ATTEND Family Medicine | DX: U07.1 COVID-19 (principal) ==

== ENCOUNTER 2020-12-27 08:00 | Outpatient (CLI) | payer BC ==
[2020-12-27 10:44] LABS: BASOPHILS % (AUTO) 0.4 %; EOSINOPHILS # (AUTO) 0.1 10^3/uL (0.0-0.7); EOSINOPHILS % (AUTO) 0.9 %; LYMPHOCYTES # (AUTO) 0.9 10^3/uL (1.5-3.5); LYMPHOCYTES % (AUTO) 8.7 %; MEAN CORPUSCULAR HGB CONC 36.1 g/dL (32.0-36.0); MEAN CORPUSCULAR VOLUME 83.1 fL (80.0-94.0); MEAN PLATELET VOLUME 8.9 fL (7.4-11.4); MONOCYTES % (AUTO) 10.3 %; NEUTROPHILS # (AUTO) 7.9 10^3/uL (1.5-6.6); NEUTROPHILS % (AUTO) 79.2 %; PLT - PLATELET COUNT 148 10^3/uL (130-450); RED BLOOD COUNT 5.33 10^6/uL (4.70-6.10); RED CELL DISTRIBUTION WIDTH 12.8 % (12.0-15.0)
[2020-12-27 11:11] LABS: ALBUMIN 4.1 g/dL (3.2-5.5); ALBUMIN/GLOBULIN RATIO 1.3 (1.0-2.2); BILIRUBIN,TOTAL 1.3 mg/dL (0.2-1.0); CALCIUM 9.5 mg/dL (8.5-10.3); CREATININE 1.2 mg/dL (0.6-1.2); TOTAL PROTEIN 7.2 g/dL (6.7-8.2)
[2020-12-27 11:27] LABS: THYROID STIMULATING HORMONE 1.15 uIU/mL (0.34-5.60)
[2020-12-27 11:29] LABS: FREE T4 (FREE THYROXINE) 0.92 ng/dL (0.58-1.64)
== END 2020-12-27 23:59 | disposition home or self-care (01) ==
LOC: LAB 08:00
PROVIDERS: ATTEND Family Medicine
DX: Z00.00 Encounter for general adult medical examination without abnormal findings (principal); R73.9 Hyperglycemia, unspecified; I42.8 Other cardiomyopathies; I48.91 Unspecified atrial fibrillation; G47.33 Obstructive sleep apnea (adult) (pediatric); I12.9 Hypertensive chronic kidney disease with stage 1 through stage 4 chronic kidney disease, or unspecified chronic kidney disease; N18.30 Chronic kidney disease, stage 3 unspecified; Z86.16 Personal history of COVID-19
CPT/HCPCS: 36415; 80053; 83036; 84439; 84443; 85025; 86769

== ENCOUNTER 2022-09-24 09:38 | Outpatient (CLI) | payer BC ==
[2022-09-24 09:53] LABS: BASOPHILS # (AUTO) 0.1 10^3/uL (0.0-0.1); BASOPHILS % (AUTO) 0.8 %; EOSINOPHILS # (AUTO) 0.3 10^3/uL (0.0-0.7); HCT - HEMATOCRIT 45.4 % (42.0-52.0); HGB - HEMOGLOBIN 15.5 g/dL (14.0-18.0); LYMPHOCYTES # (AUTO) 1.4 10^3/uL (1.5-3.5); LYMPHOCYTES % (AUTO) 17.1 %; MEAN CORPUSCULAR HGB CONC 34.1 g/dL (32.0-36.0); MEAN CORPUSCULAR VOLUME 84.9 fL (80.0-94.0); MEAN PLATELET VOLUME 9.5 fL (7.4-11.4); MONOCYTES # (AUTO) 0.6 10^3/uL (0.0-1.0); MONOCYTES % (AUTO) 6.7 %; NEUTROPHILS # (AUTO) 5.9 10^3/uL (1.5-6.6); NEUTROPHILS % (AUTO) 71.9 %; PLT - PLATELET COUNT 149 10^3/uL (130-450); RED BLOOD COUNT 5.35 10^6/uL (4.70-6.10); RED CELL DISTRIBUTION WIDTH 12.8 % (12.0-15.0); WHITE BLOOD COUNT 8.3 x10^3/uL (4.8-10.8)
[2022-09-24 10:22] LABS: ALBUMIN 4.3 g/dL (3.2-5.5); ALBUMIN/GLOBULIN RATIO 1.5 (1.0-2.2); ALKALINE PHOSPHATASE 52 IU/L (42-121); ALT ALANINE AMINOTRANSFERASE 47 IU/L (10-60); AST ASPARTATE AMINOTRANSFERASE 26 IU/L (10-42); BILIRUBIN,TOTAL 1.1 mg/dL (0.2-1.0); BUN - BLOOD UREA NITROGEN 20 mg/dL (6-20); CALCIUM 9.2 mg/dL (8.5-10.3); CARBON DIOXIDE - CO2 25 mmol/L (21-32); CHLORIDE 99 mmol/L (101-111); CHOL/HDL RATIO 6.6 (<5.0); CHOLESTEROL 212 mg/dL; CREATININE 1.3 mg/dL (0.6-1.2); GFR - MDRD 58 (>89); GLUCOSE 262 mg/dL (70-100); HDL CHOLESTEROL 32 mg/dL; POTASSIUM 4.4 mmol/L (3.5-5.0); SODIUM 135 mmol/L (135-145); TOTAL PROTEIN 7.1 g/dL (6.7-8.2); TRIGLYCERIDES 872 mg/dL
[2022-09-24 11:29] LABS: LDL CHOLESTEROL,DIRECT 44 mg/dL; LDLD/HDL RATIO 1.4 (<3.6)
[2022-09-24 12:04] LABS: ESTIMATED AVERAGE GLUCOSE 226 mg/dL (70-100); HEMOGLOBIN A1c% 9.5 % (4.27-6.07)
== END 2022-09-24 09:39 | disposition home or self-care (01) ==
LOC: LAB 09:38
PROVIDERS: ATTEND Family Medicine
DX: I12.9 Hypertensive chronic kidney disease with stage 1 through stage 4 chronic kidney disease, or unspecified chronic kidney disease (principal); E11.22 Type 2 diabetes mellitus with diabetic chronic kidney disease; N18.2 Chronic kidney disease, stage 2 (mild); I42.8 Other cardiomyopathies; I48.91 Unspecified atrial fibrillation; Z51.81 Encounter for therapeutic drug level monitoring; Z79.899 Other long term (current) drug therapy
CPT/HCPCS: 36415; 80053; 80061; 83036; 83721; 84443; 85025